=== PATIENT | female | born 1975 | race American Indian/Alaskan Native ===

== ENCOUNTER 2018-07-25 05:56 | Emergency (ER) | payer OTHER ==
[2018-07-25] MEDS ORDERED: TYLENOL PO ONE (06:33)
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
[2018-07-25] MEDS ORDERED: FLEXERIL PO ONE (08:48)
[2018-07-25] MEDS ORDERED: NORCO 5/325 PO ONE (08:48)
[2018-07-25] MEDS ORDERED: DELTASONE PO ONE (08:48)
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
[2018-07-25 09:59] VITALS: BP 127/84
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
== END 2018-07-25 09:59 | disposition home or self-care (01) ==
LOC: ED 05:56
DX: S16.1XXA Strain of muscle, fascia and tendon at neck level, initial encounter (principal); Z88.8 Allergy status to other drugs, medicaments and biological substances; Z91.013 Allergy to seafood; Z98.51 Tubal ligation status; V40.6XXA Car passenger injured in collision with pedestrian or animal in traffic accident, initial encounter; Y93.89 Activity, other specified; Y92.488 Other paved roadways as the place of occurrence of the external cause; Y99.8 Other external cause status
CPT/HCPCS: 70450; 72125; 73030; 99284; J7512